=== PATIENT | male | born 1940 | race Caucasian/White ===

== ENCOUNTER → 2017-12-01 10:01 | Outpatient (CLI) | payer OTHER, SELFPAY ==
--- NOTE | 2017-12-08 09:32 | PM.PFT.1 ---
Pulmonary Function Test Referral & Results Date Patient Seen: 12/01/17 Requesting provider: Otilio Saez Results: The spirometry demonstrates an FVC of 4.28 L which is 84% of predicted. The FEV1 was measured at 2.67 L which is 72% of predicted. The FEV1/FVC ratio was 62 which is 86% of predicted. Following the administration of bronchodilator there was a 27% improvement in FEF 25-75%. Lung volumes show an SVC of 4.76 L which is 91% of predicted. The diffusing capacity was measured at 26.55 which is 67% of predicted. No hemoglobin value was provided, so no correction for potential anemia could be made, if appropriate. The maximum voluntary ventilation was normal. Interpretation: This study demonstrates mild to moderate obstructive lung disease with some limited evidence of benefit following bronchodilator particular in small airway flows based on improvement in FEF 25-75%. There is also moderate reduction in diffusing capacity suggesting some element of disease at the capillary alveolar level.
== END ==
PROVIDERS: Visit Provider Student in an Organized Health Care Education/Training Program
DX: R06.09 Other forms of dyspnea (principal)
CPT/HCPCS: 94010; 94060; 94726; 94729